=== PATIENT | male | born 1985 | race Caucasian/White ===

== ENCOUNTER 2019-05-06 13:04 | Observation (INO) | payer BC, OTHER ==
[2019-05-06 15:55] LABS: CHLORIDE,CL 101 mmol/L (98-107); POTASSIUM,K 5.1 mmol/L (3.5-5.1); SODIUM,NA 139 mmol/L (136-148)
[2019-05-06 16:08] LABS: BLOOD UREA NITROGEN,BUN 9 mg/dL (7.0-18.0); CARBON DIOXIDE,CO2 26.3 mmol/L (21.0-32.0); GLUCOSE RANDOM 118 mg/dL (74-106); LIPASE 92 U/L (73-393)
[2019-05-06] MEDS ORDERED: Ondansetron 4 MG/2 ML SDV IVPUSH ONE (16:29)
[2019-05-06] MEDS ORDERED: Morphine 4 MG/ML Syringe IVPUSH ONE (16:29)
[2019-05-06] MEDS ORDERED: Sodium Chloride 0.9% 1,000 ML IV ONE (16:29)
--- NOTE | 2019-05-06 17:35 | CT ---
CT abdomen and pelvis Technique: Multiple axial sections were obtained from above the dome of the diaphragm inferiorly through the pubic symphysis. Intravenous and oral contrast not utilized. Comparison: No prior abdominal imaging. Findings: Visualized lung bases show nothing acute. Noncontrast appearance of the liver shows no discrete abnormality. Spleen appears within normal limits. Adrenal glands show no nodule. Pancreas appears within normal limits. Layering calcified gallstones are seen within the gallbladder. Kidneys show no abnormal calcifications or hydronephrosis. No discrete parenchymal finding is seen within the kidneys. Aorta shows no aneurysm. No retroperitoneal adenopathy or mesenteric abnormalities are seen. No pelvic mass or adenopathy is seen. Appendix is enlarged with mild surrounding inflammatory change. Findings are felt compatible with appendicitis. Bone window settings were reviewed to appear within normal limits for the patient's age. Impression: 1. Enlarged appendix with surrounding inflammatory change compatible with appendicitis. 2. Layering calcified gallstones within the gallbladder. 3. No additional abnormality is appreciated on noncontrast CT study of the abdomen and pelvis. Diagnostic code #5 Study was dictated in [place] Standard Time
--- NOTE | 2019-05-06 17:36 | EDM.PDOC ---
ED HPI GENERAL MEDICAL PROBLEM - General Chief Complaint: Abdominal Pain Stated Complaint: KIDNEY AND STOMACH PAIN Time Seen by Provider: 05/06/19 15:40 Source of Information: Reports: Patient - History of Present Illness INITIAL COMMENTS - FREE TEXT/NARRATIVE: Patient complains of 7 out of 10 bilateral low abdomen pain. Pain is constant and tight. It does not change when he eats or drinks. Does not change with position. He says he ate around 10:30 PM yesterday for the last time; he had some water at 6 this morning. No other p.o. intake. One episode of nonbloody nonbilious emesis. He does still have some nausea. No history of abdominal surgeries and no history of similar, prior abdominal pain. abdominal Pain Score (Numeric/FACES): 6 - Related Data Allergies Allergy/AdvReac Type Severity Reaction Status Date / Time No Known Allergies Allergy Verified 05/06/19 14:21 Home Meds: Home Meds . [No Known Home Meds] 05/06/19 [History] Past Medical History - Past Health History Medical/Surgical History: Denies Medical/Surgical History Social & Family History - Family History Family Medical History: Noncontributory - Tobacco Use Smoking Status *Q: Current Every Day Smoker Years of Tobacco use: 17 Packs/Tins Daily: 1 - Recreational Drug Use Recreational Drug Use: No ED ROS GENERAL - Review of Systems Review Of Systems: See Below Constitutional: Reports: Decreased Appetite. Denies: Fever, Malaise Respiratory: Denies: Shortness of Breath, Cough GI/Abdominal: Reports: Abdominal Pain, Anorexia. Denies: Black Stool, Bloody Stool : Denies: Discharge, Dysuria Skin: Denies: Jaundice Neurological: Denies: Confusion, Dizziness, Headache ED EXAM, GI/ABD - Physical Exam Exam: See Below Text/Narrative:: General: alert, well appearing, no acute distress HEENT: Atraumatic, normocephalic, pupils reactive, negative for conjunctival pallor or scleral icterus, mucous membranes moist, throat clear, handling oral secretions well. Neck: supple, nontender, trachea midline. Lungs: Clear to auscultation, breath sounds equal bilaterally, chest nontender. Heart: S1S2, regular, negative for clicks, rubs, or JVD. Abdomen: Soft, nondistended, tender in RLQ, no peritoneal signs. Negative for masses or hepatosplenomegaly. Skin: warm, dry, good turgor. Musculoskeletal: soft compartments. Extremities: Atraumatic, negative for cords or calf pain. Neurovascular unremarkable. Neuro: Awake, alert, oriented. Cranial nerves II through XII unremarkable. Cerebellum unremarkable. Motor and sensory unremarkable throughout. Exam nonfocal. Course - Vital Signs Text/Narrative:: Leukocytosis White count 15.64; otherwise unremarkable BMP: Mild hyperglycemia glucose 118; otherwise unremarkable Lipase: Normal Urinalysis: Negative for nitrite, blood, leukocyte esterase ct abd/pelvis: positive for acute appendicitis 5:30pm Requested page of surgeon. 5:40pm Case d/w Dr. Chu. Will admit pt. Last Recorded V/S: Last Vital Signs Temp 98.0 F 05/06/19 14:19 Pulse 93 05/06/19 16:50 Resp 18 05/06/19 16:50 BP 146/102 H 05/06/19 16:50 Pulse Ox 97 05/06/19 16:50 - Orders/Labs/Meds Labs: Laboratory Tests 05/06/19 05/06/19 05/06/19 Range/Units 15:27 15:27 15:27 WBC 15.64 H (4.0-11.0) K/uL RBC 5.54 (4.50-5.90) M/uL Hgb 18.0 H (13.0-17.0) g/dL Hct 50.2 H (38.0-50.0) % MCV 90.6 (80.0-98.0) fL MCH 32.5 H (27.0-32.0) pg MCHC 35.9 (31.0-37.0) g/dL RDW Std Deviation 40.8 (28.0-62.0) fl RDW Coeff of [place]ker 12 (11.0-15.0) % Plt Count 272 (150-400) K/uL MPV 10.40 (7.40-12.00) fL Neut % (Auto) 82.0 H (48.0-80.0) % Lymph % (Auto) 11.9 L (16.0-40.0) % [place] % (Auto) 5.5 (0.0-15.0) % Eos % (Auto) 0.3 (0.0-7.0) % Baso % (Auto) 0.3 (0.0-1.5) % Neut # (Auto) 12.8 H (1.4-5.7) K/uL Lymph # (Auto) 1.9 (0.6-2.4) K/uL [place] # (Auto) 0.9 H (0.0-0.8) K/uL Eos # (Auto) 0.1 (0.0-0.7) K/uL Baso # (Auto) 0.0 (0.0-0.1) K/uL Nucleated RBC % 0.0 /100WBC Nucleated RBCs # 0 K/uL Sodium 139 (136-148) mmol/L Potassium 5.1 (3.5-5.1) mmol/L Chloride 101 (98-107) mmol/L Carbon Dioxide 26.3 (21.0-32.0) mmol/L BUN 9 (7.0-18.0) mg/dL Creatinine 0.7 L (0.8-1.3) mg/dL Est Cr Clr Drug Dosing 159.86 mL/min Estimated GFR (MDRD) > 60.0 ml/min Glucose 118 H (74-106) mg/dL Calcium 9.6 (8.5-10.1) mg/dL Total Bilirubin 0.7 (0.2-1.0) mg/dL AST 45 H (15-37) IU/L ALT 44 (14-63) IU/L Alkaline Phosphatase 104 (46-116) U/L Total Protein 8.4 H (6.4-8.2) g/dL Albumin 4.0 (3.4-5.0) g/dL Globulin 4.4 H (2.6-4.0) g/dL Albumin/Globulin Ratio 0.9 (0.9-1.6) Lipase 92 (73-393) U/L Urine Color YELLOW Urine Appearance CLEAR Urine pH 7.0 (5.0-8.0) Ur Specific [place] 1.025 (1.001-1.035) Urine Protein NEGATIVE (NEGATIVE) mg/dL Urine Glucose (UA) NEGATIVE (NEGATIVE) mg/dL Urine Ketones NEGATIVE (NEGATIVE) mg/dL Urine Occult Blood NEGATIVE (NEGATIVE) Urine Nitrite NEGATIVE (NEGATIVE) Urine Bilirubin NEGATIVE (NEGATIVE) Urine Urobilinogen 0.2 (<2.0) EU/dL Ur Leukocyte Esterase NEGATIVE (NEGATIVE) Meds: Medications Discontinued Medications Generic Name Dose Route Start Last Admin Trade Name Freq PRN Reason Stop Dose Admin Sodium Chloride 1,000 mls @ 999 mls/hr 05/06/19 16:29 05/06/19 16:51 Normal Saline IV 05/06/19 17:29 999 mls/hr .BOLUS ONE Administration Morphine Sulfate 4 mg 05/06/19 16:29 05/06/19 16:52 Morphine IVPUSH 05/06/19 16:30 4 mg ONETIME ONE Administration Ondansetron HCl 4 mg 05/06/19 16:29 05/06/19 16:51 Zofran IVPUSH 05/06/19 16:30 4 mg ONETIME ONE Administration Departure - Departure Time of Disposition: 17:45 Disposition: Admitted As Inpatient 66 Clinical Impression: Appendicitis Qualifiers: Appendicitis type: acute appendicitis - Discharge Information Referrals: PCP,None [Primary Care Provider] - Forms: ED Department Discharge Sepsis Event Note - Evaluation Sepsis Screening Result: No Definite Risk - Focused Exam Vital Signs: Vital Signs Temp Pulse Resp BP Pulse Ox 05/06/19 16:50 93 18 146/102 H 97 05/06/19 14:19 98.0 F 97 18 164/106 H 98 Date Exam was Performed: 05/06/19 Time Exam was Performed: 17:44
[2019-05-06] MEDS ORDERED: Sodium Chloride 0.9% 10 ML SDV IV PRN (18:25)
[2019-05-06] MEDS ORDERED: Sodium Chloride 0.9% 10 ML Syringe FLUSH PRN (18:25)
[2019-05-06] MEDS ORDERED: Sodium Chloride 0.9% 2.5 ML Syringe FLUSH PRN (18:25)
[2019-05-06] MEDS ORDERED: Piperacillin/Tazobactam 3.375 GM in Sodium Chloride 0.9% 50 ML IV ONE (18:26)
--- NOTE | 2019-05-06 18:32 | PCM.HP.2 ---
H&P History of Present Illness - General Date of Service: 05/06/19 Admit Problem/Dx: Admission Diagnosis/Problem Admission Diagnosis/Problem Acute appendicitis Source of Information: Patient History Limitations: Reports: No Limitations - History of Present Illness Initial Comments - Free Text/Narative: Patient is a 33 year old male who presents with RLQ pain. He has been having intermittent pain there for one month but yesterday evening he developed severe pain in the RLQ that was constant. It was associated with loss of appetite and a single episode of emesis. He denies any measured fevers but felt warm and had chills. He presented to the ER. His VS were stable. WBC was 15K with a left shift. CT abdomen pelvis showed acute appendicitis. abdominal Pain Score (Numeric/FACES): 6 - Related Data Allergies/Adverse Reactions: Allergies Allergy/AdvReac Type Severity Reaction Status Date / Time No Known Allergies Allergy Verified 05/06/19 14:21 Home Medications: Home Meds . [No Known Home Meds] 05/06/19 [History] Past Medical History - Past Health History Medical/Surgical History: Denies Medical/Surgical History - Past Surgical History HEENT Surgical History: Reports: Other (See Below) (wisdom teeth removal) Social & Family History - Family History Family Medical History: Noncontributory - Tobacco Use Smoking Status *Q: Current Every Day Smoker Years of Tobacco use: 17 Packs/Tins Daily: 1 - Recreational Drug Use Recreational Drug Use: No H&P Review of Systems - Review of Systems: Review Of Systems: Comprehensive ROS is negative, except as noted in HPI. Exam - Exam Exam: See Below - Vital Signs Vital Signs: Last Vital Signs Temp 36.7 C 05/06/19 14:19 Pulse 93 05/06/19 16:50 Resp 18 05/06/19 16:50 BP 146/102 H 05/06/19 16:50 Pulse Ox 97 05/06/19 16:50 Weight: 111.13 kg - Exam General: Alert, Oriented, Cooperative HEENT: Conjunctiva Clear, Mucosa Moist & [place], Posterior Pharynx Clear Neck: Supple, Trachea Midline Lungs: Normal Respiratory Effort, Wheezing Cardiovascular: Regular Rate, Regular Rhythm GI/Abdominal Exam: Soft, Non-Tender, No Distention, No Mass Back Exam: Normal Inspection Extremities: Normal Inspection - Patient Data Lab Results Last 24 hrs: Laboratory Results - last 24 hr 05/06/19 05/06/19 05/06/19 Range/Units 15:27 15:27 15:27 WBC 15.64 H (4.0-11.0) K/uL RBC 5.54 (4.50-5.90) M/uL Hgb 18.0 H (13.0-17.0) g/dL Hct 50.2 H (38.0-50.0) % MCV 90.6 (80.0-98.0) fL MCH 32.5 H (27.0-32.0) pg MCHC 35.9 (31.0-37.0) g/dL RDW Std Deviation 40.8 (28.0-62.0) fl RDW Coeff of Iker 12 (11.0-15.0) % Plt Count 272 (150-400) K/uL MPV 10.40 (7.40-12.00) fL Neut % (Auto) 82.0 H (48.0-80.0) % Lymph % (Auto) 11.9 L (16.0-40.0) % [place] % (Auto) 5.5 (0.0-15.0) % Eos % (Auto) 0.3 (0.0-7.0) % Baso % (Auto) 0.3 (0.0-1.5) % Neut # (Auto) 12.8 H (1.4-5.7) K/uL Lymph # (Auto) 1.9 (0.6-2.4) K/uL [place] # (Auto) 0.9 H (0.0-0.8) K/uL Eos # (Auto) 0.1 (0.0-0.7) K/uL Baso # (Auto) 0.0 (0.0-0.1) K/uL Nucleated RBC % 0.0 /100WBC Nucleated RBCs # 0 K/uL Sodium 139 (136-148) mmol/L Potassium 5.1 (3.5-5.1) mmol/L Chloride 101 (98-107) mmol/L Carbon Dioxide 26.3 (21.0-32.0) mmol/L BUN 9 (7.0-18.0) mg/dL Creatinine 0.7 L (0.8-1.3) mg/dL Est Cr Clr Drug Dosing 159.86 mL/min Estimated GFR (MDRD) > 60.0 ml/min Glucose 118 H (74-106) mg/dL Calcium 9.6 (8.5-10.1) mg/dL Total Bilirubin 0.7 (0.2-1.0) mg/dL AST 45 H (15-37) IU/L ALT 44 (14-63) IU/L Alkaline Phosphatase 104 (46-116) U/L Total Protein 8.4 H (6.4-8.2) g/dL Albumin 4.0 (3.4-5.0) g/dL Globulin 4.4 H (2.6-4.0) g/dL Albumin/Globulin Ratio 0.9 (0.9-1.6) Lipase 92 (73-393) U/L Urine Color YELLOW Urine Appearance CLEAR Urine pH 7.0 (5.0-8.0) Ur Specific [place] 1.025 (1.001-1.035) Urine Protein NEGATIVE (NEGATIVE) mg/dL Urine Glucose (UA) NEGATIVE (NEGATIVE) mg/dL Urine Ketones NEGATIVE (NEGATIVE) mg/dL Urine Occult Blood NEGATIVE (NEGATIVE) Urine Nitrite NEGATIVE (NEGATIVE) Urine Bilirubin NEGATIVE (NEGATIVE) Urine Urobilinogen 0.2 (<2.0) EU/dL Ur Leukocyte Esterase NEGATIVE (NEGATIVE) Result Diagrams: 05/06/19 15:27 05/06/19 15:27 Sepsis Event Note - Evaluation Sepsis Screening Result: No Definite Risk - Focused Exam Vital Signs: Vital Signs Temp Pulse Resp BP Pulse Ox 05/06/19 16:50 93 18 146/102 H 97 05/06/19 14:19 36.7 C 97 18 164/106 H 98 Date Exam was Performed: 05/06/19 Time Exam was Performed: 18:27 - Problem List (1) Appendicitis SNOMED Code(s): 84329388 ICD Code: K37 - UNSPECIFIED APPENDICITIS Status: Acute Current Visit: Yes Qualifiers: Appendicitis type: acute appendicitis Problem List Initiated/Reviewed/Updated: Yes Orders Last 24hrs: Active Orders 24 hr Category Date Time Status Patient Status [ADT] Routine ADT 05/06/19 18:25 Ordered Antiembolic Devices [RC] PER UNIT ROUTINE Care 05/06/19 18:26 Ordered RT Incentive Spirometry [RC] Q1HWA Care 05/06/19 18:25 Ordered Verify Patient Consent Obtain [RC] ASDIRECTED Care 05/06/19 18:25 Ordered NPO Now [Nothing per Oral Now Diet] [DIET] Diet 05/07/19 Breakfast Ordered Lactated Ringers @ 125 MLS/HR(1000ml) Med 05/06/19 18:30 Ordered Lactated Ringers [Ringers, Lactated] 1,000 ml IV ASDIRECTED Piperacillin/Tazobactam [Piperacil-Tazobact] 3.375 gm Med 05/06/19 18:26 Ordered Sodium Chloride 0.9% [Normal Saline] 50 ml IV ONETIME Sodium Chloride 0.9% [Normal Saline] Med 05/06/19 18:25 Ordered 10 ml IV ASDIRECTED PRN Sodium Chloride 0.9% [Saline Flush] Med 05/06/19 18:25 Ordered 10 ml FLUSH ASDIRECTED PRN Sodium Chloride 0.9% [Saline Flush] Med 05/06/19 18:25 Ordered 2.5 ml FLUSH ASDIRECTED PRN Peripheral IV Insertion Adult [OM.PC] Routine Oth 05/06/19 18:25 Ordered Sequential Compression Device [OM.PC] Routine Oth 05/06/19 18:25 Ordered Resuscitation Status Routine Resus Stat 05/06/19 18:25 Ordered Medication Orders Lactated Ringer's (Ringers, Lactated) 1,000 mls @ 125 mls/hr IV ASDIRECTED CHAI Piperacillin Sod/Tazobactam (Sod 3.375 gm/ Sodium Chloride) 50 mls @ 100 mls/ hr IV ONETIME ONE Stop: 05/06/19 18:55 Sodium Chloride (Saline Flush) 10 ml FLUSH ASDIRECTED PRN PRN Reason: Keep Vein Open Sodium Chloride (Saline Flush) 2.5 ml FLUSH ASDIRECTED PRN PRN Reason: Keep Vein Open Sodium Chloride (Normal Saline) 10 ml IV ASDIRECTED PRN PRN Reason: IV Use Assessment/Plan Comment:: The patient and I discussed the pathophysiology of acute appendicitis. I explained the need for an appendectomy. We discussed the laparoscopic method. Should I be unable to preform it safely I will convert to open. We discussed the expected perioperative course as well as the risks including bleeding infection or damage to surrounding structures. The patient verbalized understanding and wishes to proceed. The patient will be given LR @125ml/hr, 3.375 mg IV zosyn one time, and will be kept NPO.
[2019-05-06] MEDS: Lactated Ringers 1,000 ML IV SCH (19:46)
--- NOTE | 2019-05-06 20:18 | PCM.PREANE ---
Preanesthetic Assessment - Procedure Proposed Procedure: Lap Appy - Anesthesia/Transfusion/Family Hx Anesthesia History: Prior Anesthesia Without Reaction Family History of Anesthesia Reaction: No Intubation History: Intubation other than for Surgery in past - Review of Systems General: Other (RLQ pain x 1month, worse today) Pulmonary: Cough (+ smoker), Other Cardiovascular: No Symptoms Gastrointestinal: No Symptoms Neurological: No Symptoms Other: Reports: None - Physical Assessment NPO Status Date: 05/06/19 NPO Status Time: 08:00 Vital Signs: Last Vital Signs Temp 36.4 C 05/06/19 19:46 Pulse 103 H 05/06/19 19:46 Resp 17 05/06/19 19:46 BP 145/104 H 05/06/19 19:46 Pulse Ox 96 05/06/19 19:46 Height: 1.8 m Weight: 111.13 kg ASA Class: 2E Mental Status: Alert & Oriented x3 Dentition: Reports: Normal Dentition Thyro-Mental Finger Breadths: 3 Mouth Opening Finger Breadths: 3 ROM/Head Extension: Full Lungs: Clear to Auscultation Cardiovascular: Regular Rate - Lab Values: Laboratory Last Values WBC 15.64 K/uL (4.0-11.0) H 05/06/19 15:27 RBC 5.54 M/uL (4.50-5.90) 05/06/19 15:27 Hgb 18.0 g/dL (13.0-17.0) H 05/06/19 15:27 Hct 50.2 % (38.0-50.0) H 05/06/19 15:27 MCV 90.6 fL (80.0-98.0) 05/06/19 15:27 MCH 32.5 pg (27.0-32.0) H 05/06/19 15:27 MCHC 35.9 g/dL (31.0-37.0) 05/06/19 15:27 RDW Std Deviation 40.8 fl (28.0-62.0) 05/06/19 15:27 RDW Coeff of Iker 12 % (11.0-15.0) 05/06/19 15:27 Plt Count 272 K/uL (150-400) 05/06/19 15:27 MPV 10.40 fL (7.40-12.00) 05/06/19 15:27 Neut % (Auto) 82.0 % (48.0-80.0) H 05/06/19: Lymph % (Auto) 11.9 % (16.0-40.0) L 05/06/19: [place] % (Auto) 5.5 % (0.0-15.0) 05/06/19: Eos % (Auto) 0.3 % (0.0-7.0) 05/06/19: Baso % (Auto) 0.3 % (0.0-1.5) 05/06/19: Neut # (Auto) 12.8 K/uL (1.4-5.7) H 05/06/19: Lymph # (Auto) 1.9 K/uL (0.6-2.4) 05/06/19: [place] # (Auto) 0.9 K/uL (0.0-0.8) H 05/06/19: Eos # (Auto) 0.1 K/uL (0.0-0.7) 05/06/19: Baso # (Auto) 0.0 K/uL (0.0-0.1) 05/06/19 Nucleated RBC % 0.0 /100WBC 05/06/19 Nucleated RBCs # 0 K/uL 05/06/19 Sodium 139 mmol/L (136-148) 05/06/19: Potassium 5.1 mmol/L (3.5-5.1) 05/06/19: Chloride 101 mmol/L (98-107) 05/06/19: Carbon Dioxide 26.3 mmol/L (21.0-32.0) 05/06/19: BUN 9 mg/dL (7.0-18.0) 05/06/19: Creatinine 0.7 mg/dL (0.8-1.3) L 05/06/19: Est Cr Clr Drug Dosing 159.86 mL/min 05/06/19 Estimated GFR (MDRD) > 60.0 ml/min 05/06/19: Glucose 118 mg/dL (74-106) H 02/17/20 15:27 Calcium 9.6 mg/dL (8.5-10.1) 05/06/19 15:27 Total Bilirubin 0.7 mg/dL (0.2-1.0) 05/06/19 15:27 AST 45 IU/L (15-37) H 05/06/19 15:27 ALT 44 IU/L (14-63) 05/06/19 15: Alkaline Phosphatase 104 U/L (46-116) 05/06/19 15:27 Total Protein 8.4 g/dL (6.4-8.2) H 05/06/19 15:27 Albumin 4.0 g/dL (3.4-5.0) 05/06/19 15: Globulin 4.4 g/dL (2.6-4.0) H 05/06/19 15:27 Albumin/Globulin Ratio 0.9 (0.9-1.6) 05/06/19 15: Lipase 92 U/L (73-393) 05/06/19 15: Urine Color YELLOW 05/06/19 15: Urine Appearance CLEAR 05/06/19 15: Urine pH 7.0 (5.0-8.0) 05/06/19 15: Ur Specific [place] 1.025 (1.001-1.035) 05/06/19 15: Urine Protein NEGATIVE mg/dL (NEGATIVE) 05/06/19 15:27 Urine Glucose (UA) NEGATIVE mg/dL (NEGATIVE) 05/06/19 15: Urine Ketones NEGATIVE mg/dL (NEGATIVE) 05/06/19 15: Urine Occult Blood NEGATIVE (NEGATIVE) 05/06/19 15: Urine Nitrite NEGATIVE (NEGATIVE) 05/06/19 15:27 Urine Bilirubin NEGATIVE (NEGATIVE) 05/06/19 15: Urine Urobilinogen 0.2 EU/dL (<2.0) 05/06/19 15: Ur Leukocyte Esterase NEGATIVE (NEGATIVE) 05/06/19 15:27 - Allergies Allergies/Adverse Reactions: Allergies Allergy/AdvReac Type Severity Reaction Status Date / Time No Known Allergies Allergy Verified 05/06/19 14:21 - Blood Blood Available: No Product(s) Available: None - Anesthesia Plan Pre-Op Medication Ordered: None - Acknowledgements Anesthesia Type Planned: General Anesthesia Pt an Appropriate Candidate for the Planned Anesthesia: Yes Alternatives and Risks of Anesthesia Discussed w Pt/Guardian: Yes Pt/Guardian Understands and Agrees with Anesthesia Plan: Yes Additional Comments: Discussed. ? answered. Wishes to proceed. Permit signed. PreAnesthesia Questionnaire - Past Health History Medical/Surgical History: Denies Medical/Surgical History - Past Surgical History HEENT Surgical History: Reports: Other (See Below) (wisdom teeth removal) - SUBSTANCE USE Smoking Status *Q: Current Every Day Smoker Recreational Drug Use History: No - HOME MEDS Home Medications: Home Meds . [No Known Home Meds] 05/06/19 [History] - CURRENT (IN HOUSE) MEDS Current Meds: Current Medications Lactated Ringer's (Ringers, Lactated) 1,000 mls @ 125 mls/hr IV ASDIRECTED CHAI Last Admin: 05/06/19 19:46 Dose: 125 mls/hr Sodium Chloride (Saline Flush) 10 ml FLUSH ASDIRECTED PRN PRN Reason: Keep Vein Open Sodium Chloride (Saline Flush) 2.5 ml FLUSH ASDIRECTED PRN PRN Reason: Keep Vein Open Sodium Chloride (Normal Saline) 10 ml IV ASDIRECTED PRN PRN Reason: IV Use Discontinued Medications Sodium Chloride (Normal Saline) 1,000 mls @ 999 mls/hr IV .BOLUS ONE Stop: 05/06/19 17:29 Last Admin: 05/06/19 16:51 Dose: 999 mls/hr Piperacillin Sod/Tazobactam (Sod 3.375 gm/ Sodium Chloride) 50 mls @ 100 mls/ hr IV ONETIME ONE Stop: 05/06/19 18:55 Last Admin: 05/06/19 19:00 Dose: 100 mls/hr Morphine Sulfate (Morphine) 4 mg IVPUSH ONETIME ONE Stop: 05/06/19 16:30 Last Admin: 05/06/19 16:52 Dose: 4 mg Ondansetron HCl (Zofran) 4 mg IVPUSH ONETIME ONE Stop: 05/06/19 16:30 Last Admin: 05/06/19 16:51 Dose: 4 mg
[2019-05-06] MEDS ORDERED: Propofol 200 MG/20 ML SDV ONE ×2 (20:21→22:09)
[2019-05-06] MEDS ORDERED: Ondansetron 4 MG/2 ML SDV ONE (20:21)
[2019-05-06] MEDS ORDERED: fentaNYL 100 MCG/2 ML SDV ONE ×4 (20:22→22:08)
[2019-05-06] MEDS ORDERED: Midazolam 1 MG/ML 2 ML SDV ONE (20:22)
[2019-05-06] MEDS ORDERED: Glycopyrrolate 0.2 MG/ML SDV ONE (20:22)
[2019-05-06] MEDS ORDERED: Rocuronium 100 MG/10 ML Syringe ONE (20:23)
[2019-05-06] MEDS ORDERED: Lidocaine 2% 5 ML SDV ONE (20:23)
[2019-05-06] MEDS ORDERED: Dexamethasone 4 MG/ML 5 ML MDV ONE (20:23)
[2019-05-06] MEDS ORDERED: Bupivacaine 0.5% 30 ML SDV ONE (20:26)
[2019-05-06] MEDS ORDERED: HYDROmorphone 2 MG/ML Syringe ONE (20:27)
[2019-05-06] MEDS ORDERED: Terbutaline 1 MG/ML SDV ONE (20:31)
[2019-05-06] MEDS ORDERED: Sugammadex Sodium 200 MG/2 ML VIAL ONE (20:31)
[2019-05-06] MEDS ORDERED: ceFAZolin 1 GM Vial ONE (22:10)
[2019-05-06] MEDS ORDERED: diphenhydrAMINE 50 MG/ML SDV IVPUSH PRN (23:30)
[2019-05-06] MEDS ORDERED: Acetaminophen/HYDROcodone 325-5 MG Tab PO PRN (23:30)
[2019-05-06] MEDS ORDERED: HYDROmorphone 2 MG/ML Syringe IVPUSH PRN (23:30)
[2019-05-06] MEDS ORDERED: Polyethylene Glycol 3350 Powder 17 GM Packet PO PRN (23:30)
[2019-05-06] MEDS ORDERED: Cyclobenzaprine 5 MG Tab PO PRN (23:32)
[2019-05-06] MEDS ORDERED: HYDROmorphone 1 MG/ML Syringe IV PRN (23:38)
[2019-05-06] MEDS ORDERED: HYDROmorphone 1 MG/ML Syringe IVPUSH PRN (23:39)
--- NOTE | 2019-05-06 23:39 | PCM.OPNOTE ---
- General Post-Op/Procedure Note Date of Surgery/Procedure: 05/06/19 Operative Procedure(s): Laparoscopic converted to open appendectomy Findings: enlarged but non-perforated retroperitoneal appendix Pre Op Diagnosis: Acute appendicitis Post-Op Diagnosis: same Anesthesia Technique: General ET Tube Primary Surgeon: Mónica Chu Fluid Replacement, Intraop: 2,600 Output, Urine Amount: 500 EBL in mLs: 50 Condition: Good
--- NOTE | 2019-05-06 23:59 | PCM.POSTAN ---
POST ANESTHESIA ASSESSMENT - MENTAL STATUS Mental Status: Alert - VITAL SIGNS Vital Signs: Last Vital Signs Temp 36.5 C 05/06/19 23:30 Pulse 89 05/06/19 23:55 Resp 12 05/06/19 23:55 BP 132/92 H 05/06/19 23:55 Pulse Ox 94 L 05/06/19 23:55 - RESPIRATORY Respiratory Status: Respiratory Rate WNL - CARDIOVASCULAR CV Status: Pulse Rate WNL - GASTROINTESTINAL GI Status: No Symptoms - PAIN Pain Score: 0 - OBSERVATIONS Free Text/Narrative:: Doing well. Ready for transfer to floor. No problems noted.
[2019-05-07] MEDS: Piperacillin/Tazobactam 3.375 GM in Sodium Chloride 0.9% 50 ML IV SCH ×4 (00:38→19:07)
[2019-05-07] MEDS: Lactated Ringers 1,000 ML IV SCH ×3 (00:53→18:05)
--- NOTE | 2019-05-07 01:10 | OR ---
SURGEON: MÓNICA CHU MD DATE OF PROCEDURE: 05/06/2019 PREOPERATIVE DIAGNOSIS: Acute appendicitis. POSTOPERATIVE DIAGNOSIS: Acute appendicitis. PROCEDURE PERFORMED: Laparoscopic converted to open appendectomy. PRIMARY SURGEON: Mónica Chu MD. ANESTHESIA: General endotracheal anesthesia. FLUIDS: 2600 mL crystalloid. ESTIMATED BLOOD LOSS: 50 mL. URINE OUTPUT: 500 mL. FINDINGS: Grossly enlarged, dilated, inflamed, but not perforated retrocecal appendix. COMPLICATIONS: None. INDICATIONS: The patient is a 33-year-old male who presents with a 24-hour history of right lower quadrant pain. Workup in the ER revealed a white count of 15,000, and CT scan showed a grossly enlarged and inflamed appendix. The patient and I discussed the need for an appendectomy. I explained the laparoscopic and open approaches. I explained that I would attempt this laparoscopically and convert to open if I could not perform it safely. I explained the expected perioperative course and the risks including bleeding, infection, or damage to surrounding structures. He verbalized understanding and wishes to proceed. PROCEDURE IN DETAIL: The patient was brought into the OR and placed on the OR table in supine position. A time-out was completed verifying the patient's name, age, date of , allergies, and procedure to be performed. General endotracheal anesthesia was induced. The left arm was tucked to the patient's side and a Isabel catheter placed. The abdomen was prepped and draped in usual standard fashion. I anesthetized an area 2 fingerbreadths below the left subcostal margin in the midclavicular line with 0.5% Marcaine plain. An 11 blade was used to make a small incision over this area. A 5 mm optical trocar was used to gain entry into the abdomen in the left upper quadrant under direct visualization. All layers of the abdominal wall were visualized upon entry. The abdomen was insufflated and a 5 mm 30-degree scope was inserted. I inspected the area underneath my initial trocar placement. No damage to surrounding structures was noted. A 5 mm trocar was placed under direct visualization just left and lateral to the umbilicus, and a 12 mm trocar was placed in the left lower quadrant under direct visualization as well. The patient was placed into Trendelenburg position and airplaned slightly to the left. I identified the cecum. I followed the tenia down to the base. The patient had a relatively short ascending colon. There was a large amount of small bowel overlying the area just over and below the cecal cap. I ran the small bowel and moved and flipped it out of my field of view. Just below the cecum, I noticed a grossly inflamed and enlarged appendix. It was encased in retroperitoneal tissue and I was unable to free it up safely without risking damaging the small bowel. The decision was made to convert to open. Before converting to open, I removed the 12 mm trocar and closed the fascia at this site with an interrupted 0 Vicryl suture using a Sandip-Rikki device. The abdomen was kept insufflated. I marked the area overlying my appendix using a marking pen. I then made an oblique incision along the right lower quadrant using a 15 blade. I anesthetized the subcutaneous fat and fascia with 0.5% Marcaine plain. I carried my dissection down through the layers of the abdominal wall using electrocautery. When I reached the peritoneum, it was elevated with hemostats and incised sharply with the Metzenbaum scissors. The insufflation was released. The gas was then turned off. I then extended my incision medially and laterally. Moistened laps were placed in the abdomen and I exposed the cecum. The 5 mm trocars were then removed. I identified the base of the appendix on the cecum. I then followed this down to the retroperitoneal area. The appendix was grossly inflamed and enlarged. It was encased in an inflammatory rind, which was also surrounded by retroperitoneal tissue. Using a hemostat and Metzenbaum scissors, I dissected the appendix free of the inflammatory rind in the surrounding tissue. Once I reached the appendiceal mesentery, I started taking this down in a similar fashion. I used a Harmonic device to take down some of the appendiceal mesentery. I encountered some bleeding due to the amount of inflammation along the appendiceal mesentery. I identified the appendiceal artery. This was grasped and doubly clipped with a 5 mm clip. A couple of other branches off this were clipped as well to achieve hemostasis. Once I had dissected the appendix free of the appendiceal mesentery and all of its surrounding attachments, I could easily see that the base of the appendix was not involved in the inflammatory process. A 45 mm blue load of troy was used to staple and transect across the base of the appendix using an endoscopic stapling device. The appendix was then passed off the field and sent to Pathology, labeled as appendix. I inspected my operative field. It was irrigated with normal saline Ancef solution, which was then suctioned out. I placed a piece of dry Surgicel along the cut edge of the appendiceal mesentery. Once I was assured of my hemostasis, I then began my closure. The peritoneal lining was closed with a running 0 Vicryl suture. The remaining layers of the abdominal wall were then closed with running 0 Vicryl suture as well. The subcutaneous fat layer was closed with a running 3-0 Vicryl suture. The skin was closed with skin troy. The laparoscopic sites were closed with skin troy as well. Sterile dressings were applied. The patient tolerated the procedure well and was taken to the PACU in stable condition. All counts were complete and correct at the end of the case. JOHNATHON / SUJATHA /[id number]
--- NOTE | 2019-05-07 09:27 | PCM48HPAN ---
Post Anesthesia Note - EVALUATION WITHIN 48HRS OF ANESTHETIC Vital Signs in Normal Range: Yes Patient Participated in Evaluation: Yes Respiratory Function Stable: Yes Airway Patent: Yes Cardiovascular Function Stable: Yes Hydration Status Stable: Yes Pain Control Satisfactory: Yes (Minimal Ache) Nausea and Vomiting Control Satisfactory: Yes Mental Status Recovered: Yes Vital Signs: Last Vital Signs Temp 36.6 C 05/07/19 07:44 Pulse 96 05/07/19 07:44 Resp 18 05/07/19 07:44 BP 131/81 05/07/19 07:44 Pulse Ox 94 L 05/07/19 07:44 - COMMENTS/OBSERVATIONS Free Text/Narrative:: Doing well. No problems noted post.
--- NOTE | 2019-05-07 11:39 | PCM.SURGPN ---
- General Info Date of Service: 05/07/19 Date of Surgery/Procedure: 05/06/19 POD#: 1 Functional Status: Reports: Pain Controlled, Tolerating Diet, Ambulating, Urinating - Review of Systems General: Reports: No Symptoms HEENT: Reports: No Symptoms Pulmonary: Reports: No Symptoms Cardiovascular: Reports: No Symptoms Gastrointestinal: Reports: No Symptoms. Denies: Flatus - Patient Data Vitals - Most Recent: Last Vital Signs Temp 36.6 C 05/07/19 07:44 Pulse 96 05/07/19 07:44 Resp 18 05/07/19 07:44 BP 131/81 05/07/19 07:44 Pulse Ox 94 L 05/07/19 07:44 Weight - Most Recent: 111.13 kg I&O - Last 24 Hours: Intake & Output 05/06/19 05/07/19 05/07/19 22:59 06:59 14:59 Intake Total 5936 Output Total 1675 Balance 4261 Lab Results Last 24 Hrs: Laboratory Results - last 24 hr 05/06/19 05/06/19 05/06/19 Range/Units 15:27 15:27 15:27 WBC 15.64 H (4.0-11.0) K/uL RBC 5.54 (4.50-5.90) M/uL Hgb 18.0 H (13.0-17.0) g/dL Hct 50.2 H (38.0-50.0) % MCV 90.6 (80.0-98.0) fL MCH 32.5 H (27.0-32.0) pg MCHC 35.9 (31.0-37.0) g/dL RDW Std Deviation 40.8 (28.0-62.0) fl RDW Coeff of Iker 12 (11.0-15.0) % Plt Count 272 (150-400) K/uL MPV 10.40 (7.40-12.00) fL Neut % (Auto) 82.0 H (48.0-80.0) % Lymph % (Auto) 11.9 L (16.0-40.0) % [place] % (Auto) 5.5 (0.0-15.0) % Eos % (Auto) 0.3 (0.0-7.0) % Baso % (Auto) 0.3 (0.0-1.5) % Neut # (Auto) 12.8 H (1.4-5.7) K/uL Lymph # (Auto) 1.9 (0.6-2.4) K/uL [place] # (Auto) 0.9 H (0.0-0.8) K/uL Eos # (Auto) 0.1 (0.0-0.7) K/uL Baso # (Auto) 0.0 (0.0-0.1) K/uL Nucleated RBC % 0.0 /100WBC Nucleated RBCs # 0 K/uL Sodium 139 (136-148) mmol/L Potassium 5.1 (3.5-5.1) mmol/L Chloride 101 (98-107) mmol/L Carbon Dioxide 26.3 (21.0-32.0) mmol/L BUN 9 (7.0-18.0) mg/dL Creatinine 0.7 L (0.8-1.3) mg/dL Est Cr Clr Drug Dosing 159.86 mL/min Estimated GFR (MDRD) > 60.0 ml/min Glucose 118 H (74-106) mg/dL Calcium 9.6 (8.5-10.1) mg/dL Total Bilirubin 0.7 (0.2-1.0) mg/dL AST 45 H (15-37) IU/L ALT 44 (14-63) IU/L Alkaline Phosphatase 104 (46-116) U/L Total Protein 8.4 H (6.4-8.2) g/dL Albumin 4.0 (3.4-5.0) g/dL Globulin 4.4 H (2.6-4.0) g/dL Albumin/Globulin Ratio 0.9 (0.9-1.6) Lipase 92 (73-393) U/L Urine Color YELLOW Urine Appearance CLEAR Urine pH 7.0 (5.0-8.0) Ur Specific [place] 1.025 (1.001-1.035) Urine Protein NEGATIVE (NEGATIVE) mg/dL Urine Glucose (UA) NEGATIVE (NEGATIVE) mg/dL Urine Ketones NEGATIVE (NEGATIVE) mg/dL Urine Occult Blood NEGATIVE (NEGATIVE) Urine Nitrite NEGATIVE (NEGATIVE) Urine Bilirubin NEGATIVE (NEGATIVE) Urine Urobilinogen 0.2 (<2.0) EU/dL Ur Leukocyte Esterase NEGATIVE (NEGATIVE) Med Orders - Current: Current Medications Hydrocodone Bitart/Acetaminophen ([place] 325-5 Mg) 2 tab PO Q4H PRN PRN Reason: Pain (moderate 4-6) Cyclobenzaprine HCl (Flexeril) 5 mg PO TID PRN PRN Reason: Muscle Spasm Diphenhydramine HCl (Benadryl) 50 mg IVPUSH Q4H PRN PRN Reason: Itching Hydromorphone HCl (Dilaudid) 0.5 mg IVPUSH Q1H PRN PRN Reason: Pain (severe 7-10) Lactated Ringer's (Ringers, Lactated) 1,000 mls @ 125 mls/hr IV ASDIRECTED [facility] Last Admin: 05/07/19 09:52 Dose: 125 mls/hr Piperacillin Sod/Tazobactam (Sod 3.375 gm/ Sodium Chloride) 50 mls @ 100 mls/ hr IV Q6H [facility] Last Admin: 05/07/19 06:15 Dose: 100 mls/hr Polyethylene Glycol (Miralax) 17 gm PO DAILY PRN PRN Reason: Constipation Sodium Chloride (Saline Flush) 10 ml FLUSH ASDIRECTED PRN PRN Reason: Keep Vein Open Sodium Chloride (Saline Flush) 2.5 ml FLUSH ASDIRECTED PRN PRN Reason: Keep Vein Open Sodium Chloride (Normal Saline) 10 ml IV ASDIRECTED PRN PRN Reason: IV Use Discontinued Medications Bupivacaine HCl (Marcaine 0.5%) Confirm Administered Dose 30 ml .ROUTE .STK-MED ONE Stop: 05/06/19 20:27 Cefazolin Sodium (Ancef) Confirm Administered Dose 1 gm .ROUTE .STK-MED ONE Stop: 05/06/19 22:11 Dexamethasone (Dexamethasone) Confirm Administered Dose 20 mg .ROUTE .STK-MED ONE Stop: 05/06/19 20:24 Fentanyl (Sublimaze) Confirm Administered Dose 100 mcg .ROUTE .STK-MED ONE Stop: 05/06/19 20:23 Fentanyl (Sublimaze) Confirm Administered Dose 100 mcg .ROUTE .STK-MED ONE Stop: 05/06/19 20:57 Fentanyl (Sublimaze) Confirm Administered Dose 100 mcg .ROUTE .STK-MED ONE Stop: 05/06/19 21:01 Fentanyl (Sublimaze) Confirm Administered Dose 100 mcg .ROUTE .STK-MED ONE Stop: 05/06/19 22:09 Glycopyrrolate (Robinul) Confirm Administered Dose 0.2 mg .ROUTE .STK-MED ONE Stop: 05/06/19 20:23 Hydromorphone HCl (Dilaudid) Confirm Administered Dose 2 mg .ROUTE .STK-MED ONE Stop: 05/06/19 20:28 Hydromorphone HCl (Dilaudid) 0.5 mg IVPUSH Q1H PRN PRN Reason: Pain (severe 7-10) Hydromorphone HCl (Dilaudid) 0.5 mg IV Q1H PRN PRN Reason: Pain (severe 7-10) Sodium Chloride (Normal Saline) 1,000 mls @ 999 mls/hr IV .BOLUS ONE Stop: 05/06/19 17:29 Last Admin: 05/06/19 16:51 Dose: 999 mls/hr Piperacillin Sod/Tazobactam (Sod 3.375 gm/ Sodium Chloride) 50 mls @ 100 mls/ hr IV ONETIME ONE Stop: 05/06/19 18:55 Last Admin: 05/06/19 19:00 Dose: 100 mls/hr Acetaminophen (Ofirmev) Confirm Administered Dose 100 mls @ as directed .ROUTE .STK-MED ONE Stop: 05/06/19 20:32 Lidocaine (Xylocaine-Mpf 2%) Confirm Administered Dose 5 ml .ROUTE .STK-MED ONE Stop: 05/06/19 20:24 Midazolam HCl (Versed 1 Mg/Ml) Confirm Administered Dose 2 mg .ROUTE .STK-MED ONE Stop: 05/06/19 20:23 Morphine Sulfate (Morphine) 4 mg IVPUSH ONETIME ONE Stop: 05/06/19 16:30 Last Admin: 05/06/19 16:52 Dose: 4 mg Ondansetron HCl (Zofran) 4 mg IVPUSH ONETIME ONE Stop: 05/06/19 16:30 Last Admin: 05/06/19 16:51 Dose: 4 mg Ondansetron HCl (Zofran) Confirm Administered Dose 4 mg .ROUTE .STK-MED ONE Stop: 05/06/19 20:22 Propofol (Diprivan 20 Ml) Confirm Administered Dose 400 mg .ROUTE .STK-MED ONE Stop: 05/06/19 20:22 Propofol (Diprivan 20 Ml) Confirm Administered Dose 200 mg .ROUTE .STK-MED ONE Stop: 05/06/19 22:10 Rocuronium [place] (Zemuron) Confirm Administered Dose 100 mg .ROUTE .STK-MED ONE Stop: 05/06/19 20:24 Sugammadex Sodium (Bridion) Confirm Administered Dose 200 mg .ROUTE .STK-MED ONE Stop: 05/06/19 20:32 Terbutaline Sulfate (Brethine) Confirm Administered Dose 1 mg .ROUTE .STK-MED ONE Stop: 05/06/19 20:32 - Exam Wound/Incisions: Healing Well, Dressing Dry and Intact General: Alert, Oriented Lungs: Normal Respiratory Effort Cardiovascular: Regular Rate GI/Abdominal Exam: Soft, Non-Tender, No Distention, No Mass Extremities: Normal Inspection, Normal Range of Motion Skin: Warm, Dry, Intact Sepsis Event Note - Evaluation Sepsis Screening Result: Sepsis Risk - Focused Exam Vital Signs: Vital Signs Temp Pulse Resp BP Pulse Ox 05/07/19 07:44 36.6 C 96 18 131/81 94 L 05/07/19 04:35 84 127/58 L 95 05/07/19 03:35 97 129/61 91 L 05/07/19 02:35 85 127/60 94 L 05/07/19 02:05 87 133/62 94 L 05/07/19 01:35 88 136/66 94 L 05/07/19 01:20 98 142/78 H 93 L 05/07/19 01:05 101 H 146/99 H 93 L 05/07/19 00:50 93 141/93 H 91 L 05/07/19 00:20 36.3 C 94 16 135/96 H 94 L 05/07/19 00:05 88 6 L 147/91 H 94 L 05/06/19 23:59 95 15 145/98 H 94 L 05/06/19 23:55 89 12 132/92 H 94 L 05/06/19 23:49 90 16 142/97 H 94 L 05/06/19 23:44 85 13 135/91 H 98 05/06/19 23:39 94 11 L 143/97 H 98 Date Exam was Performed: 05/07/19 Time Exam was Performed: 11:36 - Problem List & Annotations (1) Appendicitis SNOMED Code(s): 27851190 Code(s): K37 - UNSPECIFIED APPENDICITIS Status: Acute Current Visit: Yes Qualifiers: Appendicitis type: acute appendicitis - Problem List Review Problem List Initiated/Reviewed/Updated: Yes - My Orders Last 24 Hours: Active Orders 24 hr Category Date Time Status Patient Status [ADT] Routine ADT 05/06/19 23:29 Active Antiembolic Devices [RC] PER UNIT ROUTINE Care 05/06/19 18:26 Active Oxygen Therapy [RC] PRN Care 05/06/19 23:30 Active RT Incentive Spirometry [RC] Q1HWA Care 05/06/19 18:25 Active Remove Isabel Catheter [Urinary Catheter Removal] [RC] Care 05/07/19 07:30 Active Per Unit Routine Up ad [place] [RC] ASDIRECTED Care 05/06/19 23:30 Active Vital Signs [RC] PER UNIT ROUTINE Care 05/06/19 23:30 Active Regular Diet [DIET] Diet 05/07/19 Lunch Active Acetaminophen/HYDROcodone [[place] 325-5 MG] Med 05/06/19 23:30 Active 2 tab PO Q4H PRN Cyclobenzaprine [Flexeril] Med 05/06/19 23:32 Active 5 mg PO TID PRN HYDROmorphone [Dilaudid] Med 05/06/19 23:39 Active 0.5 mg IVPUSH Q1H PRN Lactated Ringers [Ringers, Lactated] 1,000 ml Med 05/06/19 18:30 Active IV ASDIRECTED Piperacillin/Tazobactam [Piperacil-Tazobact] 3.375 gm Med 05/07/19 01:00 Active Sodium Chloride 0.9% [Normal Saline] 50 ml IV Q6H Sodium Chloride 0.9% [Normal Saline] Med 05/06/19 18:25 Active 10 ml IV ASDIRECTED PRN Sodium Chloride 0.9% [Saline Flush] Med 05/06/19 18:25 Active 10 ml FLUSH ASDIRECTED PRN Sodium Chloride 0.9% [Saline Flush] Med 05/06/19 18:25 Active 2.5 ml FLUSH ASDIRECTED PRN diphenhydrAMINE [Benadryl] Med 05/06/19 23:30 Active 50 mg IVPUSH Q4H PRN polyethylene glycoL 3350 [MiraLAX] Med 02/17/20 23:30 Active 17 gm PO DAILY PRN Peripheral IV Insertion Adult [OM.PC] Routine Oth 05/06/19 18:25 Ordered Sequential Compression Device [OM.PC] Routine Oth 05/06/19 18:25 Ordered Resuscitation Status Routine Resus Stat 05/06/19 18:25 Ordered Medication Orders Hydrocodone Bitart/Acetaminophen ([place] 325-5 Mg) 2 tab PO Q4H PRN PRN Reason: Pain (moderate 4-6) Cyclobenzaprine HCl (Flexeril) 5 mg PO TID PRN PRN Reason: Muscle Spasm Diphenhydramine HCl (Benadryl) 50 mg IVPUSH Q4H PRN PRN Reason: Itching Hydromorphone HCl (Dilaudid) 0.5 mg IVPUSH Q1H PRN PRN Reason: Pain (severe 7-10) Lactated Ringer's (Ringers, Lactated) 1,000 mls @ 125 mls/hr IV ASDIRECTED [facility] Last Admin: 05/07/19 09:52 Dose: 125 mls/hr Infusion: 05/07/19 08:53 Dose: 125 mls/hr Admin: 05/07/19 00:53 Dose: 125 mls/hr Infusion: 05/07/19 00:53 Dose: 125 mls/hr Admin: 05/06/19 19:46 Dose: 125 mls/hr Piperacillin Sod/Tazobactam (Sod 3.375 gm/ Sodium Chloride) 50 mls @ 100 mls/ hr IV Q6H [facility] Admin: 05/07/19 06:15 Dose: 100 mls/hr Infusion: 05/07/19 01:08 Dose: 100 mls/hr Admin: 05/07/19 00:38 Dose: 100 mls/hr Polyethylene Glycol (Miralax) 17 gm PO DAILY PRN PRN Reason: Constipation Sodium Chloride (Saline Flush) 10 ml FLUSH ASDIRECTED PRN PRN Reason: Keep Vein Open Sodium Chloride (Saline Flush) 2.5 ml FLUSH ASDIRECTED PRN PRN Reason: Keep Vein Open Sodium Chloride (Normal Saline) 10 ml IV ASDIRECTED PRN PRN Reason: IV Use - Plan Plan (Free Text/Narrative):: Patient doing very well this morning. Isabel removed. Tolerating clear liquid diet without nausea. Advancing diet to regular. Ambulate patient today. If tolerating regular diet, vitals stable, and pain well controlled will d/c home tomorrow morning.
[2019-05-08] MEDS: Piperacillin/Tazobactam 3.375 GM in Sodium Chloride 0.9% 50 ML IV SCH ×2 (01:00→06:31)
[2019-05-08] MEDS: Lactated Ringers 1,000 ML IV SCH (02:58)
--- NOTE | 2019-05-08 10:01 | PCM.DCSUM1 ---
Discharge Summary - Hospital Course Free Text/Narrative:: Patient is a 33-year-old male who presents with right lower quadrant pain. Workup in the emergency room revealed acute appendicitis. The patient was taken the operating room for an appendectomy. His appendix was enlarged and inflamed and encased in retroperitoneal tissue. His case was converted from laparoscopic to open. The case went well. There were no intraoperative complications. The patient did well in the postoperative period. His pain was well controlled on minimal narcotics. His diet was advanced without difficulty. He is currently passing flatus and denies any nausea vomiting or lack of appetite. He has good urine output. Vital signs are stable. He is ambulating without difficulty. Will be discharged home. - Discharge Data Discharge Date: 05/08/19 Discharge Disposition: Home, Self-Care 01 Condition: Good - Referral to Home Health Primary Care Physician: PCP None - Discharge Diagnosis/Problem(s) (1) Appendicitis SNOMED Code(s): 86557079 ICD Code: K37 - UNSPECIFIED APPENDICITIS Status: Acute Current Visit: Yes Qualifiers: Appendicitis type: acute appendicitis - Patient Summary/Data Operative Procedure(s) Performed: Laparoscopic converted to open appendectomy - Patient Instructions Diet: Regular Diet as Tolerated Activity: No Lifting Over 20 Pounds (for six weeks ), Rest and Relax Today Driving: Do Not Drive (for this week or while on narcotics) Showering/Bathing: May Shower, No Tub Bathing/Swimming (for 2 weeks ) Notify Provider of: Fever, Increased Pain, Swelling and Redness, Drainage, Nausea and/or Vomiting - Discharge Plan *PRESCRIPTION DRUG MONITORING PROGRAM REVIEWED*: Yes *COPY OF PRESCRIPTION DRUG MONITORING REPORT IN PATIENT SHARON: Yes Home Medications: Home Meds . [No Known Home Meds] 05/06/19 [History] Patient Handouts: Acetaminophen; Hydrocodone tablets or capsules, Appendicitis , Adult, Laparoscopic Appendectomy, Adult Referrals: Mónica Chu MD [Physician] - 05/13/19 9:30 am - Discharge Summary/Plan Comment DC Time >30 min.: No - General Info Functional Status: Reports: Pain Controlled, Tolerating Diet, Ambulating, Urinating. Denies: New Symptoms - Review of Systems General: Reports: No Symptoms HEENT: Reports: No Symptoms Pulmonary: Reports: No Symptoms Cardiovascular: Reports: No Symptoms Gastrointestinal: Reports: Flatus. Denies: Abdominal Pain, Decreased Appetite, Diarrhea, Nausea, Vomiting - Patient Data Vitals - Most Recent: Last Vital Signs Temp 36.2 C 05/08/19 04:26 Pulse 74 05/08/19 04:26 Resp 18 05/08/19 04:26 BP 123/65 05/08/19 04:26 Pulse Ox 96 05/08/19 04:26 Weight - Most Recent: 111.13 kg I&O - Last 24 hours: Intake & Output 05/07/19 05/08/19 05/08/19 22:59 06:59 14:59 Intake Total 1679 1310 Output Total 1210 1600 Balance 469 -290 Med Orders - Current: Current Medications Hydrocodone Bitart/Acetaminophen ([place] 325-5 Mg) 2 tab PO Q4H PRN PRN Reason: Pain (moderate 4-6) Cyclobenzaprine HCl (Flexeril) 5 mg PO TID PRN PRN Reason: Muscle Spasm Diphenhydramine HCl (Benadryl) 50 mg IVPUSH Q4H PRN PRN Reason: Itching Hydromorphone HCl (Dilaudid) 0.5 mg IVPUSH Q1H PRN PRN Reason: Pain (severe 7-10) Polyethylene Glycol (Miralax) 17 gm PO DAILY PRN PRN Reason: Constipation Sodium Chloride (Saline Flush) 10 ml FLUSH ASDIRECTED PRN PRN Reason: Keep Vein Open Sodium Chloride (Saline Flush) 2.5 ml FLUSH ASDIRECTED PRN PRN Reason: Keep Vein Open Sodium Chloride (Normal Saline) 10 ml IV ASDIRECTED PRN PRN Reason: IV Use Discontinued Medications Bupivacaine HCl (Marcaine 0.5%) Confirm Administered Dose 30 ml .ROUTE .STK-MED ONE Stop: 05/06/19 20:27 Cefazolin Sodium (Ancef) Confirm Administered Dose 1 gm .ROUTE .STK-MED ONE Stop: 05/06/19 22:11 Dexamethasone (Dexamethasone) Confirm Administered Dose 20 mg .ROUTE .STK-MED ONE Stop: 05/06/19 20:24 Fentanyl (Sublimaze) Confirm Administered Dose 100 mcg .ROUTE .STK-MED ONE Stop: 05/06/19 20:23 Fentanyl (Sublimaze) Confirm Administered Dose 100 mcg .ROUTE .STK-MED ONE Stop: 05/06/19 20:57 Fentanyl (Sublimaze) Confirm Administered Dose 100 mcg .ROUTE .STK-MED ONE Stop: 05/06/19 21:01 Fentanyl (Sublimaze) Confirm Administered Dose 100 mcg .ROUTE .STK-MED ONE Stop: 05/06/19 22:09 Glycopyrrolate (Robinul) Confirm Administered Dose 0.2 mg .ROUTE .STK-MED ONE Stop: 05/06/19 20:23 Hydromorphone HCl (Dilaudid) Confirm Administered Dose 2 mg .ROUTE .STK-MED ONE Stop: 05/06/19 20:28 Hydromorphone HCl (Dilaudid) 0.5 mg IVPUSH Q1H PRN PRN Reason: Pain (severe 7-10) Hydromorphone HCl (Dilaudid) 0.5 mg IV Q1H PRN PRN Reason: Pain (severe 7-10) Sodium Chloride (Normal Saline) 1,000 mls @ 999 mls/hr IV .BOLUS ONE Stop: 05/06/19 17:29 Last Admin: 05/06/19 16:51 Dose: 999 mls/hr Lactated Ringer's (Ringers, Lactated) 1,000 mls @ 125 mls/hr IV ASDIRECTED [facility] Last Admin: 05/08/19 02:58 Dose: 125 mls/hr Piperacillin Sod/Tazobactam (Sod 3.375 gm/ Sodium Chloride) 50 mls @ 100 mls/ hr IV ONETIME ONE Stop: 05/06/19 18:55 Last Admin: 05/06/19 19:00 Dose: 100 mls/hr Acetaminophen (Ofirmev) Confirm Administered Dose 100 mls @ as directed .ROUTE .STK-MED ONE Stop: 05/06/19 20:32 Piperacillin Sod/Tazobactam (Sod 3.375 gm/ Sodium Chloride) 50 mls @ 100 mls/ hr IV Q6H [facility] Last Admin: 05/08/19 06:31 Dose: 100 mls/hr Lidocaine (Xylocaine-Mpf 2%) Confirm Administered Dose 5 ml .ROUTE .STK-MED ONE Stop: 05/06/19 20:24 Midazolam HCl (Versed 1 Mg/Ml) Confirm Administered Dose 2 mg .ROUTE .STK-MED ONE Stop: 05/06/19 20:23 Morphine Sulfate (Morphine) 4 mg IVPUSH ONETIME ONE Stop: 05/06/19 16:30 Last Admin: 05/06/19 16:52 Dose: 4 mg Ondansetron HCl (Zofran) 4 mg IVPUSH ONETIME ONE Stop: 05/06/19 16:30 Last Admin: 05/06/19 16:51 Dose: 4 mg Ondansetron HCl (Zofran) Confirm Administered Dose 4 mg .ROUTE .STK-MED ONE Stop: 05/06/19 20:22 Propofol (Diprivan 20 Ml) Confirm Administered Dose 400 mg .ROUTE .STK-MED ONE Stop: 05/06/19 20:22 Propofol (Diprivan 20 Ml) Confirm Administered Dose 200 mg .ROUTE .STK-MED ONE Stop: 05/06/19 22:10 Rocuronium [place] (Zemuron) Confirm Administered Dose 100 mg .ROUTE .STK-MED ONE Stop: 05/06/19 20:24 Sugammadex Sodium (Bridion) Confirm Administered Dose 200 mg .ROUTE .STK-MED ONE Stop: 05/06/19 20:32 Terbutaline Sulfate (Brethine) Confirm Administered Dose 1 mg .ROUTE .STK-MED ONE Stop: 05/06/19 20:32 - Exam General: Reports: Alert, Oriented HEENT: Reports: Pupils Equal, Pupils Reactive Lungs: Reports: Normal Respiratory Effort Cardiovascular: Reports: Regular Rate GI/Abdominal Exam: Soft, Non-Tender, No Distention, No Mass Extremities: Normal Inspection Skin: Reports: Warm, Dry, Intact Wound/Incisions: Reports: Healing Well
== END 2019-05-08 11:17 | disposition home or self-care (01) ==
LOC: MW.ED 13:04 → MW.SDS 18:25 → MW.MS 18:25 → MW.SDS 23:29
PROVIDERS: ADMIT Surgery; ATTEND Surgery
DX: K35.80 Unspecified acute appendicitis (principal); F17.210 Nicotine dependence, cigarettes, uncomplicated
CPT/HCPCS: 36415; 44950; 74176; 80053; 81003; 83690; 85025; 88304; 93005; C1776; J0131; J0690; J1100; J1170; J2001; J2250; J2270; J2405; J2543; J2704; J3010; J3105; J3490; J7030; J7050; J7120